=== PATIENT | female | born 1995 | race Two or more races ===

== ENCOUNTER 2021-01-16 11:00 | Outpatient (CLI) | payer OTHER | END 2021-01-16 23:59 | disposition home or self-care (01) | LOC: LAB 11:00 | PROVIDERS: ATTEND Internal Medicine Gastroenterology | DX: Z01.812 Encounter for preprocedural laboratory examination (principal); Z20.822 Contact with and (suspected) exposure to COVID-19 | CPT/HCPCS: C9803; U0003 ==

== ENCOUNTER 2021-01-19 07:24 | Day surgery (SDC) | payer OTHER ==
[2021-01-19 08:00] VITALS: BP 136/99
[2021-01-19] MEDS ORDERED: OMEP40CA21 PO (08:41)
[2021-01-19] MEDS ORDERED: IBUP-1957 PO (08:41)
[2021-01-19 09:32] LABS: BASOPHILS % (AUTO) 0.4 % (0.0-2.0); HEMATOCRIT 37 % (33-45); HEMOGLOBIN 12.6 g/dL (11.5-14.8); LYMPHOCYTES # (AUTO) 1.8 K/uL (0.8-4.8); LYMPHOCYTES % (AUTO) 28.1 % (20.0-44.0); MEAN CORPUSCULAR HGB CONC 34 g/dl (31.0-36.0); MEAN CORPUSCULAR VOLUME 90 fL (82-100); MONOCYTES # (AUTO) 0.5 K/uL (0.1-1.30); MONOCYTES % (AUTO) 7.7 % (2.0-12.0); NEUTROPHILS # (AUTO) 3.8 K/uL (1.8-8.9); NEUTROPHILS % (AUTO) 60.8 % (43.0-81.0); PLATELET COUNT (AUTO) 284 K/uL (150-450); RED BLOOD CELL COUNT(AUTO) 4.14 MIL/uL (4.0-5.2); WHITE BLOOD COUNT (AUTO) 6.3 K/uL (4.3-11.0)
[2021-01-19 09:55] LABS: CREATININE 0.8 mg/dL (0.6-1.3); POTASSIUM 4.1 mmol/L (3.5-5.1)
[2021-01-19 10:00] LABS: BILIRUBIN,TOTAL 0.4 mg/dL (0.2-1.0); TOTAL PROTEIN, SERUM 7.9 g/dL (6.4-8.2)
[2021-01-19 10:12] VITALS: BP 112/52
--- NOTE | 2021-01-19 11:43 | NUR ---
[facility] GENERAL OPERATIONAL TEST NOTE PATIENT DISCHARGED AND CLEARED TO GO HOME. DISCHARGE INSTRUCTIONS REVIEWED AND SIGNED WITH PATIENT: FOLLOW UP DR. LOMBARDI IN 2 WEEEKS, ADVANCE DIET TOLERATED, CONTINUE HOME MEDICATIONS, IN CASE OF AN EMERGENCY GO TO NEAREST HOSPITAL OR CALL 911. PATIENT LEFT UNIT VIA WHEELCHAIR WITH [employer] AND FAMILY.
== END 2021-01-19 18:00 | disposition home or self-care (01) ==
LOC: DS 07:24 → MED 07:28 → UNDOADMIN 07:28 → UNDODISIN 11:30 → DS 18:00
PROVIDERS: ATTEND Internal Medicine Gastroenterology
DX: K21.9 Gastro-esophageal reflux disease without esophagitis (principal); Z20.822 Contact with and (suspected) exposure to COVID-19; K44.9 Diaphragmatic hernia without obstruction or gangrene; E66.01 Morbid (severe) obesity due to excess calories
CPT/HCPCS: 36415; 43239; 80053; 84703; 85025; 85610; 85730; 88305; 88312; 88313; J2704; G0378